=== PATIENT | male | born 1950 | race Caucasian/White ===

== ENCOUNTER → 2019-08-05 | Outpatient (CLI) | payer MEDICARE, OTHER ==
--- NOTE | 2019-08-05 16:57 | RAD ---
EXAM: 3 views left shoulder DATE: 08/05/2019 12:00 AM INDICATION: Left shoulder pain COMPARISON: No Prior FINDINGS: No evidence of acute fracture or dislocation. AC joint is congruent. Cystic change within the left humeral head likely degenerative or projectional. Humeral head is not high riding. IMPRESSION: No evidence of acute fracture or dislocation. Mild cystic change within the left humeral head may be degenerative or projectional. Electronically signed by: German Frank MD (08/05/2019 4:55 PM) [id number]
== END | disposition home or self-care (01) ==
LOC: DXRAD 12:37
PROVIDERS: ATTEND Orthopaedic Surgery
DX: M25.512 Pain in left shoulder (principal)
CPT/HCPCS: 73030